=== PATIENT | female | born 1930 | race Caucasian/White ===

== ENCOUNTER 2016-11-30 09:35 | Emergency (ER) | payer OTHER, MEDICAID ==
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
[2016-11-30 12:58] LABS: COLOR PALE YELLOW; LEUKOCYTE ESTERASE,URINE NEGATIVE (NEGATIVE); NITRITE,URINE NEGATIVE (NEGATIVE)
[2016-11-30 14:16] VITALS: BP 132/53; PULSE 74; RESP 17; TEMP 98.1; O2SAT 91
== END 2016-11-30 15:07 | disposition home or self-care (01) ==
DX: F80.1 Expressive language disorder (principal)